=== PATIENT | female | born 1965 | race Caucasian/White ===

== ENCOUNTER 2020-05-01 07:37 | Inpatient (IN) | payer BC ==
[~2020-05-01 07:37] MED LIST: Povidone-Iodine 10% Soln 118.25 ML Bottle ONE; ceFAZolin 2 GM in Premix Bag 1 BAG IV ONE
[2020-05-01] MEDS: Nozin Nasal Sanitizer NASBOTH SCH ×3 (07:54→21:21)
[2020-05-01] MEDS ORDERED: Lactated Ringers 1,000 ML IV SCH (08:00)
[2020-05-01] MEDS ORDERED: Tranexamic Acid 1,000 MG in Sodium Chloride 0.9% 50 ML IV SCH (08:00)
[2020-05-01] MEDS ORDERED: Propofol 200 MG/20 ML SDV ONE ×2 (08:04→10:56)
[2020-05-01] MEDS ORDERED: Midazolam 1 MG/ML 2 ML SDV ONE ×2 (08:04→10:46)
[2020-05-01] MEDS ORDERED: fentaNYL 100 MCG/2 ML SDV ONE (08:04)
[2020-05-01] MEDS ORDERED: ceFAZolin 2 GM in Sodium Chloride 0.9% 100 ML IV ONE (08:30)
[2020-05-01] MEDS ORDERED: Lactated Ringers 1,000 ML ONE (10:37)
[2020-05-01] MEDS ORDERED: Magnesium Hydroxide 400 MG/5 ML Susp 30 ML Cup PO PRN (11:44)
[2020-05-01] MEDS ORDERED: Ondansetron 4 MG Tab.DIS PO PRN (11:44)
[2020-05-01] MEDS ORDERED: Acetaminophen/HYDROcodone 325-5 MG Tab PO PRN (11:44)
[2020-05-01] MEDS ORDERED: Morphine 2 MG/ML SYRINGE IVPUSH PRN (11:44)
[2020-05-01] MEDS ORDERED: ceFAZolin 1 GM in Sodium Chloride 0.9% 50 ML IV SCH (11:45)
[2020-05-01] MEDS ORDERED: ePHEDrine 50 MG/ML SDV ONE (12:02)
[2020-05-01] MEDS ORDERED: Sodium Chloride 0.9% 10 ML ONE (12:02)
[2020-05-01] MEDS: Acetaminophen/oxyCODONE 325-5 MG Tab PO PRN ×3 (13:00→21:18)
--- NOTE | 2020-05-01 13:31 | CR ---
Pelvis 1V or 2V CLINICAL HISTORY: Postop FINDINGS: Patient is status post total right hip arthroplasty. Components appear well seated. There are some osteoarthritic changes in the left hip with joint space narrowing. IMPRESSION: Status post total right hip arthroplasty
[2020-05-01] MEDS: Ketorolac 30 MG/ML SDV IVPUSH SCH ×2 (13:51→22:15)
[2020-05-01] MEDS: Sodium Chloride 0.9% 1,000 ML IV SCH ×2 (15:08→23:51)
[2020-05-01] MEDS: ceFAZolin 1 GM in Premix Bag 1 BAG IV SCH (17:13)
[2020-05-02] MEDS: ceFAZolin 1 GM in Premix Bag 1 BAG IV SCH ×2 (01:52→10:01)
[2020-05-02] MEDS: Acetaminophen/oxyCODONE 325-5 MG Tab PO PRN ×3 (03:37→12:35)
[2020-05-02] MEDS: Ketorolac 30 MG/ML SDV IVPUSH SCH ×3 (05:53→22:10)
[2020-05-02] MEDS: Enoxaparin 30 MG/0.3 ML Syringe SUBCUT SCH (08:58)
[2020-05-02] MEDS: Nozin Nasal Sanitizer NASBOTH SCH (08:58)
[2020-05-02] MEDS: Docusate Sodium 100 MG Cap PO SCH (08:58)
[2020-05-02] MEDS: Acetaminophen 325 MG Tab PO PRN (19:37)
[2020-05-03] MEDS: Nozin Nasal Sanitizer NASBOTH SCH ×2 (02:10→09:02)
[2020-05-03] MEDS: Acetaminophen 325 MG Tab PO PRN (02:14)
[2020-05-03] MEDS: Acetaminophen/HYDROcodone 325-5 MG Tab PO PRN ×2 (02:14→07:34)
[2020-05-03] MEDS: Ketorolac 30 MG/ML SDV IVPUSH SCH (05:15)
[2020-05-03] MEDS: Docusate Sodium 100 MG Cap PO SCH (09:02)
[2020-05-03] MEDS: Enoxaparin 30 MG/0.3 ML Syringe SUBCUT SCH (09:02)
[2020-05-03 11:43] VITALS: BP 132/73; PULSE 84
[2020-05-03] MEDS ORDERED: Acetaminophen/HYDROcodone 325-5 MG Tab PO PRN (12:32)
--- NOTE | 2020-05-04 16:36 | PCM.SURGPN ---
- General Info Date of Service: 05/02/20 Date of Surgery/Procedure: 05/01/20 POD#: 1 Post-Op Diagnosis: Osteoarthritis right hip Functional Status: Reports: Pain Controlled, Tolerating Diet, Ambulating, Urinating - Review of Systems General: Reports: No Symptoms HEENT: Reports: No Symptoms Pulmonary: Reports: No Symptoms Cardiovascular: Reports: No Symptoms Gastrointestinal: Reports: No Symptoms Genitourinary: Reports: No Symptoms Musculoskeletal: Reports: Joint Pain Skin: Reports: No Symptoms Neurological: Reports: No Symptoms Psychiatric: Reports: No Symptoms - Patient Data Vitals - Most Recent: Last Vital Signs Temp 36.7 C 05/03/20 11:22 Pulse 84 05/03/20 11:22 Resp 16 05/03/20 11:22 BP 132/73 05/03/20 11:22 Pulse Ox 99 05/03/20 11:22 Weight - Most Recent: 108.545 kg Med Orders - Current: Current Medications Discontinued Medications Acetaminophen (Tylenol) 650 mg PO Q4H PRN PRN Reason: Pain/Fever Last Admin: 05/03/20 02:14 Dose: 650 mg Documented by: Hydrocodone Bitart/Acetaminophen ([place] 325-5 Mg) 2 tab PO Q4H PRN PRN Reason: Pain (mild 1-3) Last Admin: 05/02/20 19:36 Dose: 1 tab Documented by: Hydrocodone Bitart/Acetaminophen ([place] 325-5 Mg) 1 - 2 tab PO Q4H PRN PRN Reason: Pain Last Admin: 05/03/20 07:34 Dose: 1 tab Documented by: Hydrocodone Bitart/Acetaminophen ([place] 325-5 Mg) 1 - 2 tab PO Q4H PRN PRN Reason: Pain Last Admin: 05/03/20 12:39 Dose: 1 tab Documented by: Bandage/Support Products ( Nasal Back Tufter) 1 applic NASBOTH BID [facility] Last Admin: 05/01/20 13:45 Dose: Not Given Documented by: Bandage/Support Products ( Nasal Back Tufter) 1 applic NASBOTH BID [facility] Stop: 05/08/20 21:01 Last Admin: 05/03/20 09:02 Dose: 1 applic Documented by: Docusate Sodium (Colace) 100 mg PO DAILY [facility] Last Admin: 05/03/20 09:02 Dose: 100 mg Documented by: Enoxaparin Sodium (Lovenox) 30 mg SUBCUT DAILY [facility] Last Admin: 05/03/20 09:02 Dose: 30 mg Documented by: Ephedrine Sulfate (Ephedrine Sulfate) Confirm Administered Dose 50 mg .ROUTE .[facility] ONE Stop: 05/01/20 12:03 Fentanyl (Sublimaze) Confirm Administered Dose 100 mcg .ROUTE .[facility] ONE Stop: 05/01/20 08:05 Lactated Ringer's (Ringers, Lactated) 1,000 mls @ 75 mls/hr IV ASDIRECTED [facility] Last Admin: 05/01/20 07:54 Dose: 75 mls/hr Documented by: Cefazolin Sodium/Dextrose 2 gm (/ Premix) 50 mls @ 100 mls/hr IV ONETIME ONE Stop: 05/01/20 07:59 Last Admin: 05/01/20 10:10 Dose: 100 mls/hr Documented by: Tranexamic Acid 1,000 mg/ (Sodium Chloride) 60 mls @ 240 mls/hr IV Q4H [facility] Stop: 05/01/20 12:14 Last Admin: 05/01/20 10:30 Dose: 240 mls/hr Documented by: Lactated Ringer's (Ringers, Lactated) Confirm Administered Dose 1,000 mls @ as directed .ROUTE .[facility] ONE Stop: 05/01/20 10:38 Sodium Chloride (Normal Saline) 1,000 mls @ 125 mls/hr IV ASDIRECTED [facility] Last Admin: 05/01/20 23:51 Dose: 125 mls/hr Documented by: Sodium Chloride (Normal Saline) Confirm Administered Dose 10 mls @ as directed .ROUTE .[facility] ONE Stop: 05/01/20 12:03 Cefazolin Sodium/Dextrose 1 gm (/ Premix) 50 mls @ 100 mls/hr IV Q8H [facility] Stop: 05/02/20 10:29 Last Admin: 05/02/20 10:01 Dose: 100 mls/hr Documented by: Ketorolac Tromethamine (Toradol) 30 mg IVPUSH Q8H [facility] Stop: 05/06/20 14:01 Last Admin: 05/03/20 05:15 Dose: Not Given Documented by: Magnesium Hydroxide (Milk Of Magnesia) 30 ml PO Q6H PRN PRN Reason: Stool Softener Last Admin: 05/02/20 19:41 Dose: 30 ml Documented by: Midazolam HCl (Versed 1 Mg/Ml) Confirm Administered Dose 2 mg .ROUTE .[facility] ONE Stop: 05/01/20 08:05 Midazolam HCl (Versed 1 Mg/Ml) Confirm Administered Dose 2 mg .ROUTE .[facility] ONE Stop: 05/01/20 10:47 Morphine Sulfate (Morphine) 1 mg IVPUSH Q1H PRN PRN Reason: Breakthrough Pain Ondansetron HCl (Zofran Odt) 4 mg PO Q6H PRN PRN Reason: Nausea/Vomiting Last Admin: 05/02/20 13:02 Dose: 4 mg Documented by: Oxycodone/Acetaminophen (Percocet 325-5 Mg) 0 tab PO Q4H PRN PRN Reason: Pain (severe 7-10) Last Admin: 05/02/20 12:35 Dose: 1 tab Documented by: Povidone Iodine (Betadine 10% Soln) Confirm Administered Dose 1 ml .ROUTE .[facility]- [facility] ONE Stop: 05/01/20 06:39 Last Admin: 05/01/20 10:55 Dose: 40 ml Documented by: Propofol (Diprivan 20 Ml) Confirm Administered Dose 200 mg .ROUTE .[facility] ONE Stop: 05/01/20 08:05 Propofol (Diprivan 20 Ml) Confirm Administered Dose 200 mg .ROUTE .[facility] ONE Stop: 05/01/20 10:57 - Exam Wound/Incisions: Dressing Dry and Intact General: Alert, Oriented HEENT: Pupils Equal Neck: Supple Lungs: Clear to Auscultation, Normal Respiratory Effort Cardiovascular: Regular Rate, Regular Rhythm GI/Abdominal Exam: Normal Bowel Sounds, Soft, Non-Tender, No Distention Extremities: Leg Pain, Limited Range of Motion Skin: Warm, Dry Neurological: No New Focal Deficit Psy/Mental Status: Alert, Normal Affect, Normal Mood Sepsis Event Note - Evaluation Sepsis Screening Result: No Definite Risk - Problem List & Annotations (1) Acute postoperative anemia due to expected blood loss SNOMED Code(s): 35606365102021453 Code(s): D62 - ACUTE POSTHEMORRHAGIC ANEMIA Status: Acute (2) Status post total hip replacement, right SNOMED Code(s): 258062413648, 150305836102 Code(s): Z96.641 - PRESENCE OF RIGHT ARTIFICIAL HIP JOINT Status: Acute (3) Osteoarthritis of right hip SNOMED Code(s): 819370591504873 Code(s): M16.11 - UNILATERAL PRIMARY OSTEOARTHRITIS, RIGHT HIP Status: Chronic Qualifiers: Osteoarthritis type: primary Qualified Code(s): M16.11 - Unilateral primary osteoarthritis, right hip - Problem List Review Problem List Initiated/Reviewed/Updated: Yes - Assessment Assessment (Free Text/Narrative):: Did very well overnight. Has been up in [place] with walker. Pain controlled on po meds. - Plan Plan (Free Text/Narrative):: Saline lock, IV, Pate out, continue PT, work on transitions and stairs, likely home after PT in AM.
--- NOTE | 2020-05-04 16:40 | PCM.DCSUM1 ---
Discharge Summary - Hospital Course Brief History: 54 year old with history of chronic right hip pain that has gotten progressively worse. Limited ROM and severe OA on x-ray. Admitted for right YANELIS. Diagnosis: Stroke: No Modified Glencoe Scale: No Symptoms at All Modified [place]coe Scale Score: 0 - Discharge Data Discharge Date: 05/03/20 Discharge Disposition: Home, Self-Care 01 Condition: Good - Referral to Home Health Date of Face to Face Encounter: 05/03/20 Primary Care Physician: DEEDEE Husain - Discharge Diagnosis/Problem(s) (1) Acute postoperative anemia due to expected blood loss SNOMED Code(s): 29638335444465896 ICD Code: D62 - ACUTE POSTHEMORRHAGIC ANEMIA Status: Acute (2) Status post total hip replacement, right SNOMED Code(s): 876987530937, 030008396194 ICD Code: Z96.641 - PRESENCE OF RIGHT ARTIFICIAL HIP JOINT Status: Acute (3) Osteoarthritis of right hip SNOMED Code(s): 702926477242222 ICD Code: M16.11 - UNILATERAL PRIMARY OSTEOARTHRITIS, RIGHT HIP Status: C hronic Qualifiers: Osteoarthritis type: primary Qualified Code(s): M16.11 - Unilateral primary osteoarthritis, right hip - Patient Summary/Data Operative Procedure(s) Performed: Right Total Hip Complications: None Consults: Consultations 05/01/20 11:44 Consult to Case Management/Tax Compliance Agent [CONS] Routine Comment: Physician Instructions: Discharge placement post hip surgery Service(s) to be Consulted: Case Management PT Evaluation and Treatment [CONS] Routine Please Evaluate and Treat. PT Reason for Consult: Ambulation Discharge Disposition: Home w Home Health Special Instructions: posterior hip precautions, WBAT This query below is only for informational purposes and is not editable. PT Evaluation and Treatment [CONS] Routine Please Evaluate and Treat. PT Reason for Consult: Post op Ortho Surgery Hip Pending Discharge: Yes, 2- -3 days Special Instructions: Schedule first outpatient P.T. appointment 3 - 5 days post discharge This query below is only for informational purposes and is not editable. 05/01/20 11:48 OT Evaluation and Treatment [CONS] Routine Please Evaluate and Treat. OT Reason for Consult: ADL's Special Instructions: Status post Hip Surgery This query below is only for informational purposes and is not editable. Hospital Course: Tolerated procedure very well. Pain well controlled with po meds prior to discharge. Walking in halls and transitioning out of bed. Dressing changed POD #2, incision looks good. Home with outpatient PT. - Patient Instructions Diet: Usual Diet as Tolerated Activity: Apply Ice, As Tolerated, Full Weight Bearing Driving: Do Not Drive Showering/Bathing: May Shower Wound/Incision Care: Keep Operative Site/Wound Site Clean and Dry Notify Provider of: Fever, Increased Pain, Swelling and Redness, Drainage Other/Special Instructions: Apsirin one twice a day - Discharge Plan *PRESCRIPTION DRUG MONITORING PROGRAM REVIEWED*: No *COPY OF PRESCRIPTION DRUG MONITORING REPORT IN PATIENT MARGA: No Prescriptions/Med Rec: Hydrocodone/Acetaminophen [[place] 5-325 Tablet] 1 - 2 each PO Q6HR PRN #40 tablet PRN Reason: Pain oxyCODONE HCl/Acetaminophen [Percocet 5-325 mg Tablet] 1 - 2 each PO Q6HR PRN #40 tablet PRN Reason: Pain Home Medications: Home Meds Ibuprofen 1 - 2 tab PO Q6HR PRN 04/06/20 [History] Hydrocodone/Acetaminophen [[place] 5-325 Tablet] 1 - 2 each PO Q6HR PRN #40 tablet 05/03/20 [Rx] oxyCODONE HCl/Acetaminophen [Percocet 5-325 mg Tablet] 1 - 2 each PO Q6HR PRN #40 tablet 05/03/20 [Rx] Other Amb Orders: PT Evaluation and Treatment [CONS] Location: None Selected Oxygen Therapy Mode: Room Air Referrals: Riky Hurtado PT [Physical Therapist] - 05/09/20 8:00 am (PLEASE ARRIVE 30 MINUTES EARLY TO REGISTER FOR YOUR PHYSICAL THERAPY APPOINTMENT. PLEASE USE THE ER ENTRANCE AND REGISTER AT THE ER DESK.) Fran Callejas MD [Physician] - 05/16/20 10:30 am (Please use the ER entrance and register at the ER desk.) - Discharge Summary/Plan Comment DC Time >30 min.: No - General Info Functional Status: Reports: Pain Controlled, Tolerating Diet, Ambulating, Urinating - Review of Systems General: Reports: No Symptoms HEENT: Reports: No Symptoms Pulmonary: Reports: No Symptoms Cardiovascular: Reports: No Symptoms Gastrointestinal: Reports: No Symptoms Genitourinary: Reports: No Symptoms Musculoskeletal: Reports: Joint Pain Skin: Reports: No Symptoms Neurological: Reports: No Symptoms Psychiatric: Reports: No Symptoms - Patient Data Vitals - Most Recent: Last Vital Signs Temp 36.7 C 05/03/20 11:22 Pulse 84 05/03/20 11:22 Resp 16 05/03/20 11:22 BP 132/73 05/03/20 11:22 Pulse Ox 99 05/03/20 11:22 Weight - Most Recent: 108.545 kg Med Orders - Current: Current Medications Discontinued Medications Acetaminophen (Tylenol) 650 mg PO Q4H PRN PRN Reason: Pain/Fever Last Admin: 05/03/20 02:14 Dose: 650 mg Documented by: Hydrocodone Bitart/Acetaminophen ([place] 325-5 Mg) 2 tab PO Q4H PRN PRN Reason: Pain (mild 1-3) Last Admin: 05/02/20 19:36 Dose: 1 tab Documented by: Hydrocodone Bitart/Acetaminophen ([place] 325-5 Mg) 1 - 2 tab PO Q4H PRN PRN Reason: Pain Last Admin: 05/03/20 07:34 Dose: 1 tab Documented by: Hydrocodone Bitart/Acetaminophen ([place] 325-5 Mg) 1 - 2 tab PO Q4H PRN PRN Reason: Pain Last Admin: 05/03/20 12:39 Dose: 1 tab Documented by: Bandage/Support Products ( Nasal Creative Services Coordinator) 1 applic NASBOTH BID [facility] Last Admin: 05/01/20 13:45 Dose: Not Given Documented by: Bandage/Support Products ( Nasal Creative Services Coordinator) 1 applic NASBOTH BID [facility] Stop: 05/08/20 21:01 Last Admin: 05/03/20 09:02 Dose: 1 applic Documented by: Docusate Sodium (Colace) 100 mg PO DAILY [facility] Last Admin: 05/03/20 09:02 Dose: 100 mg Documented by: Enoxaparin Sodium (Lovenox) 30 mg SUBCUT DAILY [facility] Last Admin: 05/03/20 09:02 Dose: 30 mg Documented by: Ephedrine Sulfate (Ephedrine Sulfate) Confirm Administered Dose 50 mg .ROUTE .STK-[facility] ONE Stop: 05/01/20 12:03 Fentanyl (Sublimaze) Confirm Administered Dose 100 mcg .ROUTE .[facility] ONE Stop: 05/01/20 08:05 Lactated Ringer's (Ringers, Lactated) 1,000 mls @ 75 mls/hr IV ASDIRECTED [facility] Last Admin: 05/01/20 07:54 Dose: 75 mls/hr Documented by: Cefazolin Sodium/Dextrose 2 gm (/ Premix) 50 mls @ 100 mls/hr IV ONETIME ONE Stop: 05/01/20 07:59 Last Admin: 05/01/20 10:10 Dose: 100 mls/hr Documented by: Tranexamic Acid 1,000 mg/ (Sodium Chloride) 60 mls @ 240 mls/hr IV Q4H [facility] Stop: 05/01/20 12:14 Last Admin: 05/01/20 10:30 Dose: 240 mls/hr Documented by: Lactated Ringer's (Ringers, Lactated) Confirm Administered Dose 1,000 mls @ as directed .ROUTE .[facility] ONE Stop: 05/01/20 10:38 Sodium Chloride (Normal Saline) 1,000 mls @ 125 mls/hr IV ASDIRECTED [facility] Last Admin: 05/01/20 23:51 Dose: 125 mls/hr Documented by: Sodium Chloride (Normal Saline) Confirm Administered Dose 10 mls @ as directed .ROUTE .[facility] ONE Stop: 05/01/20 12:03 Cefazolin Sodium/Dextrose 1 gm (/ Premix) 50 mls @ 100 mls/hr IV Q8H [facility] Stop: 05/02/20 10:29 Last Admin: 05/02/20 10:01 Dose: 100 mls/hr Documented by: Ketorolac Tromethamine (Toradol) 30 mg IVPUSH Q8H [facility] Stop: 05/06/20 14:01 Last Admin: 05/03/20 05:15 Dose: Not Given Documented by: Magnesium Hydroxide (Milk Of Magnesia) 30 ml PO Q6H PRN PRN Reason: Stool Softener Last Admin: 05/02/20 19:41 Dose: 30 ml Documented by: Midazolam HCl (Versed 1 Mg/Ml) Confirm Administered Dose 2 mg .ROUTE .[facility] Stop: 05/01/20 08:05 Midazolam HCl (Versed 1 Mg/Ml) Confirm Administered Dose 2 mg .ROUTE .STK-MED ONE Stop: 05/01/20 10:47 Morphine Sulfate (Morphine) 1 mg IVPUSH Q1H PRN PRN Reason: Breakthrough Pain Ondansetron HCl (Zofran Odt) 4 mg PO Q6H PRN PRN Reason: Nausea/Vomiting Last Admin: 05/02/20 13:02 Dose: 4 mg Documented by: Oxycodone/Acetaminophen (Percocet 325-5 Mg) 0 tab PO Q4H PRN PRN Reason: Pain (severe 7-10) Last Admin: 05/02/20 12:35 Dose: 1 tab Documented by: Povidone Iodine (Betadine 10% Soln) Confirm Administered Dose 1 ml .ROUTE .STK- MED ONE Stop: 05/01/20 06:39 Last Admin: 05/01/20 10:55 Dose: 40 ml Documented by: Propofol (Diprivan 20 Ml) Confirm Administered Dose 200 mg .ROUTE .STK-MED ONE Stop: 05/01/20 08:05 Propofol (Diprivan 20 Ml) Confirm Administered Dose 200 mg .ROUTE .STK-MED ONE Stop: 05/01/20 10:57 - Exam General: Reports: Alert, Oriented HEENT: Reports: Pupils Equal, Pupils Reactive, EOMI, Mucous Membr. Moist/[place] Neck: Reports: Supple Lungs: Reports: Clear to Auscultation, Normal Respiratory Effort Cardiovascular: Reports: Regular Rate, Regular Rhythm GI/Abdominal Exam: Normal Bowel Sounds, Soft, Non-Tender, No Organomegaly, No Distention, No Abnormal Bruit, No Mass, Pelvis Stable (Female) Exam: Deferred Rectal (Female) Exam: Deferred Back Exam: Reports: Normal Inspection Extremities: Leg Pain, Limited Range of Motion Skin: Reports: Warm, Dry Wound/Incisions: Reports: Healing Well, No Drainage Neurological: Reports: No New Focal Deficit Psy/Mental Status: Reports: Alert, Normal Affect, Normal Mood
--- NOTE | 2020-05-10 17:09 | OR ---
DATE OF PROCEDURE: 05/01/2020 SURGEON: Fran Callejas MD PREOPERATIVE DIAGNOSIS: Osteoarthritis, right hip. POSTOPERATIVE DIAGNOSIS: Osteoarthritis, right hip. PROCEDURE: Right total hip arthroplasty using Mauri M/L taper stem size 7.5, standard 54 mm Continuum cup with elevated liner, and a 36 mm -3.5 neck length ceramic head. ANESTHESIA: Spinal with sedation. INDICATIONS: Mallorie is a very pleasant 54-year-old female with a history of progressive pain in the left hip for the past couple of years. It has gotten significantly worse in the last several months. This limited her activities of daily living. X-rays reveal end-stage osteoarthritis. Now presents for right total hip arthroplasty. Risks, benefits, and potential complications of the procedure were discussed. DESCRIPTION OF PROCEDURE: After adequate anesthesia was obtained, the patient was placed in a lateral decubitus position and secured with the hip positioner. The right hip and leg were then prepped and draped in a sterile fashion. A longitudinal incision was made over the greater trochanter, carried down through the subcutaneous tissues, and hemostasis obtained with electrocautery. Tensor fascia was split in line with its fibers, and a Charnley retractor was placed. Short external rotators were taken off the greater trochanter along with the posterior capsule in 1 layer. Capsule was then divided in a T- fashion, and the hip was dislocated. Retractor was placed about the femoral neck, and a femoral neck cut was made with an oscillating saw. Retractors were placed about the anterior and inferior aspect of the acetabulum. Remaining degenerative labrum was excised. Soft tissues were cleared from the central acetabulum, which was then reamed to 54 mm. The 54 mm Continuum cup was press-fit into position, and additional fixation obtained with acetabular screw. This was irrigated, and an elevated liner was tapped into position. Attention was turned to the femur where a box osteotome was used to remove the lateral femoral neck cortex. An awl was placed down the canal followed by a lateralizing reamer. The canal was then sequentially broached to a 7.5 size. This was then left in place, and trial reductions were made with a -3.5 neck length restoring limb length. Trials were removed. A M/L taper stem was tapped into position, and a trial reduction was again done with a -3.5 neck length, which provided full extension and excellent stability in flexion, adduction, and internal rotation. Trials were removed. Trunnion of the stem was dried, and a 36 mm ceramic head with a -3.5 neck length was tapped into position. This was reduced and taken through range of motion, which again was very stable. The hip was irrigated including irrigation with dilute Betadine solution. The capsule was repaired with #2 Ethibond, and short external rotators reattached to the greater trochanter. Tensor fascia and IT band were then repaired in a running locking fashion, and skin was closed with 2-0 Vicryl and a running 3-0 Monocryl. Skin was covered with Steri-Strips and a sterile dressing. The patient tolerated the procedure very well. There were no complications, taken from the operative room in stable condition. Fran Callejas MD /[id number]
== END 2020-05-03 13:40 | disposition home or self-care (01) | DRG 301 ==
LOC: JP.SDS 07:37 → JP.MS 11:44 → JP.SDS 11:45 → JP.MS 11:45
PROVIDERS: ADMIT Specialist; ATTEND Specialist
PROC: 0SR903A Replacement of Right Hip Joint with Ceramic Synthetic Substitute, Uncemented, Open Approach (ICD-10-PCS; principal; 2020-05-01)
DX: M16.11 Unilateral primary osteoarthritis, right hip (principal); D62 Acute posthemorrhagic anemia; Z90.49 Acquired absence of other specified parts of digestive tract; Z88.0 Allergy status to penicillin; Z88.8 Allergy status to other drugs, medicaments and biological substances
CPT/HCPCS: 36415; 72170; 72170-26; 86850; 86900; 86901; 97110-GP; 97116-GP; 97161-GP; 97530-GP; 97535-GP; A9270-GY; C1713; C1776; J0690; J1650; J1885; J2250; J2704; J3010; J7030; J7050; J7120

== ENCOUNTER 2022-04-05 08:49 | Day surgery (SDC) | payer OTHER ==
[2022-04-05] MEDS ORDERED: Lactated Ringers 1,000 ML IV SCH (09:15)
[2022-04-05] MEDS ORDERED: Propofol 200 MG/20 ML SDV ONE (10:23)
[2022-04-05] MEDS ORDERED: fentaNYL 100 MCG/2 ML SDV ONE (10:23)
[2022-04-05] MEDS ORDERED: Midazolam 1 MG/ML 2 ML SDV ONE (10:23)
[2022-04-05 12:55] VITALS: BP 113/74; PULSE 66
== END 2022-04-05 12:56 | disposition home or self-care (01) ==
LOC: JP.SDS 08:49
PROVIDERS: ATTEND Family Medicine
DX: K92.1 Melena (principal); K64.8 Other hemorrhoids; K64.4 Residual hemorrhoidal skin tags; J45.909 Unspecified asthma, uncomplicated; M16.10 Unilateral primary osteoarthritis, unspecified hip; F32.A Depression, unspecified; Z88.0 Allergy status to penicillin; Z88.8 Allergy status to other drugs, medicaments and biological substances; Z90.49 Acquired absence of other specified parts of digestive tract; Z90.710 Acquired absence of both cervix and uterus
CPT/HCPCS: 45378; J2250; J2704; J3010; J7120

== ENCOUNTER 2023-01-25 22:31 | Emergency (ER) | payer OTHER ==
[2023-01-26 00:53] LABS: BASOPHILS PERCENT AUTO 0.1 % (0.1-1.3); EOSINOPHILS PERCENT AUTO 0.2 % (0.0-5.4); HEMATOCRIT 40.6 % (34.3-46.0); HEMOGLOBIN 13.1 g/dL (11.2-15.5); IMMATURE GRAN ABSOLUTE AUTO 0.04 K/uL (0.00-0.23); IMMATURE GRAN PERCENT AUTO 0.4 % (0.0-0.7); LYMPHOCYTES ABSOLUTE AUTO 0.76 K/uL (0.8-3.3); LYMPHOCYTES PERCENT AUTO 7.8 % (11.4-47.7); MEAN CORPUSCULAR HEMOGLOBIN 28.1 pg (31.6-35.5); MEAN CORPUSCULAR HGB CONC 32.3 g/dL (31.6-35.5); MEAN CORPUSCULAR VOLUME 86.9 fL (81.4-99.0); MONOCYTES ABSOLUTE AUTO 0.76 K/uL (0.20-0.90); MONOCYTES PERCENT AUTO 7.8 % (3.3-12.6); NEUTROPHILS PERCENT AUTO 83.7 % (40.0-78.1); PLATELET COUNT,PLT 180 K/uL (130-375); RED BLOOD CELL COUNT 4.67 M/uL (3.77-5.24); WHITE BLOOD CELL COUNT,WBC 9.8 K/uL (3.2-11.0)
[2023-01-26 01:11] LABS: BASOPHILS ABSOLUTE AUTO 0.01 K/uL (0.00-0.10); EOSINOPHILS ABSOLUTE AUTO 0.02 K/uL (0.00-0.40)
[2023-01-26 01:13] LABS: A/G RATIO 0.7 (1.2-2.2); ALANINE AMINOTRANSFERASE,ALT 66 U/L (12-78); ALKALINE PHOSPHATASE 141 U/L (46-116); ASPARTATE AMNIOTRANSFERASE,AST 73 U/L (15-37); BILIRUBIN TOTAL 0.6 mg/dL (0.2-1.0); BLOOD UREA NITROGEN,BUN 11 mg/dL (7-18); CALCIUM 8.6 mg/dL (8.5-10.1); CARBON DIOXIDE,CO2 28 mmol/L (21-32); CHLORIDE,CL 101 mmol/L (100-108); CREATININE 0.8 mg/dL (0.6-1.0); EST CRCL DRUG DOSING (CG) 84.91 mL/min; ESTIMATED GFR 86 mL/min (>60); GLUCOSE RANDOM 135 mg/dL (74-106); POTASSIUM,K 3.1 mmol/L (3.6-5.2); PROTEIN TOTAL,TP 7.3 g/dL (6.4-8.2); SODIUM,NA 135 mmol/L (140-148)
[2023-01-26 01:24] LABS: ANION GAP 9.1 mmol/L (5.0-14.0)
[2023-01-26 02:41] VITALS: BP 137/68; PULSE 101
== END 2023-01-26 02:50 | disposition home or self-care (01) ==
LOC: JP.ED 22:31
DX: L03.116 Cellulitis of left lower limb (principal); J45.909 Unspecified asthma, uncomplicated; Z88.0 Allergy status to penicillin; Z88.8 Allergy status to other drugs, medicaments and biological substances
CPT/HCPCS: 36415; 80053; 83605; 84145; 85025; 99283

== ENCOUNTER 2023-01-27 13:58 | Inpatient (IN) | payer OTHER ==
[2023-01-27] MEDS ORDERED: Sodium Chloride 0.9% 10 ML Syringe FLUSH PRN (15:57)
[2023-01-27 16:22] LABS: BASOPHILS PERCENT AUTO 0.2 % (0.1-1.3); EOSINOPHILS ABSOLUTE AUTO 0.05 K/uL (0.00-0.40); EOSINOPHILS PERCENT AUTO 0.5 % (0.0-5.4); HEMATOCRIT 38.6 % (34.3-46.0); IMMATURE GRAN ABSOLUTE AUTO 0.05 K/uL (0.00-0.23); IMMATURE GRAN PERCENT AUTO 0.5 % (0.0-0.7); LYMPHOCYTES ABSOLUTE AUTO 0.69 K/uL (0.8-3.3); LYMPHOCYTES PERCENT AUTO 6.9 % (11.4-47.7); MEAN CORPUSCULAR HEMOGLOBIN 28.3 pg (31.6-35.5); MEAN CORPUSCULAR HGB CONC 33.7 g/dL (31.6-35.5); MEAN CORPUSCULAR VOLUME 84.1 fL (81.4-99.0); MONOCYTES ABSOLUTE AUTO 0.88 K/uL (0.20-0.90); MONOCYTES PERCENT AUTO 8.8 % (3.3-12.6); NEUTROPHILS ABSOLUTE AUTO 8.31 K/uL (1.0-7.6); NEUTROPHILS PERCENT AUTO 83.1 % (40.0-78.1); PLATELET COUNT,PLT 217 K/uL (130-375); RED BLOOD CELL COUNT 4.59 M/uL (3.77-5.24)
[2023-01-27 16:23] LABS: BASOPHILS ABSOLUTE AUTO 0.02 K/uL (0.00-0.10)
[2023-01-27] MEDS ORDERED: HYDROmorphone 0.5 MG/0.5 ML Syringe IVPUSH ONE (16:40)
[2023-01-27 16:44] LABS: A/G RATIO 0.6 (1.2-2.2); ALANINE AMINOTRANSFERASE,ALT 68 U/L (12-78); ALBUMIN 2.9 g/dL (3.4-5.0); ALKALINE PHOSPHATASE 190 U/L (46-116); ASPARTATE AMNIOTRANSFERASE,AST 51 U/L (15-37); BILIRUBIN TOTAL 0.6 mg/dL (0.2-1.0); BLOOD UREA NITROGEN,BUN 10 mg/dL (7-18); CALCIUM 9.1 mg/dL (8.5-10.1); CARBON DIOXIDE,CO2 26 mmol/L (21-32); CHLORIDE,CL 100 mmol/L (100-108); CREATININE 0.8 mg/dL (0.6-1.0); ESTIMATED GFR 86 mL/min (>60); GLUCOSE RANDOM 118 mg/dL (74-106); POTASSIUM,K 3.1 mmol/L (3.6-5.2); PROTEIN TOTAL,TP 7.6 g/dL (6.4-8.2); SODIUM,NA 135 mmol/L (140-148)
[2023-01-27 16:45] LABS: ANION GAP 12.1 mmol/L (5.0-14.0)
[2023-01-27 16:48] LABS: LACTIC ACID 1.1 mmol/L (0.4-2.0)
[2023-01-27] MEDS ORDERED: Ibuprofen 400 MG Tab PO ONE (17:20)
[2023-01-27] MEDS ORDERED: Potassium Chloride 20 MEQ Tab.ER PO ONE (19:25)
[2023-01-27] MEDS ORDERED: Ondansetron 4 MG Tab.DIS PO PRN (19:25)
[2023-01-27] MEDS ORDERED: Ondansetron 4 MG/2 ML SDV IV PRN (19:25)
[2023-01-27] MEDS ORDERED: Magnesium Hydroxide 400 MG/5 ML Susp 30 ML Cup PO PRN (19:25)
[2023-01-27] MEDS ORDERED: Ibuprofen 600 MG Tab PO PRN (19:25)
[2023-01-27] MEDS ORDERED: Sodium Chloride 0.9% 1,000 ML IV SCH (19:25)
[2023-01-27] MEDS ORDERED: diphenhydrAMINE 50 MG/ML SDV IVPUSH ONE (19:46)
[2023-01-27] MEDS: Enoxaparin 40 MG/0.4 ML Syringe SUBCUT SCH (20:16)
[2023-01-27] MEDS: Triamcinolone Acetonide 0.1% Oint 15 GM Tube TOP SCH (20:16)
[2023-01-27] MEDS: Lactobacillus Rhamnosus GG (Probiotic) Cap PO SCH (20:16)
[2023-01-27] MEDS: Acetaminophen 325 MG Tab PO PRN (20:22)
[2023-01-27] MEDS ORDERED: Famotidine 20 MG/2 ML SDV IVPUSH PRN (23:43)
[2023-01-27] MEDS ORDERED: diphenhydrAMINE 50 MG/ML SDV IVPUSH PRN (23:43)
[2023-01-28] MEDS: Acetaminophen 325 MG Tab PO PRN ×4 (03:52→20:10)
[2023-01-28 05:10] LABS: HEMATOCRIT 34.3 % (34.3-46.0); HEMOGLOBIN 11.5 g/dL (11.2-15.5); MEAN CORPUSCULAR HGB CONC 33.5 g/dL (31.6-35.5); MEAN CORPUSCULAR VOLUME 83.5 fL (81.4-99.0); RED BLOOD CELL COUNT 4.11 M/uL (3.77-5.24); WHITE BLOOD CELL COUNT,WBC 8.7 K/uL (3.2-11.0)
[2023-01-28 05:30] LABS: CALCIUM 8.7 mg/dL (8.5-10.1); CREATININE 0.6 mg/dL (0.6-1.0); EST CRCL DRUG DOSING (CG) 90.41 mL/min; POTASSIUM,K 3.4 mmol/L (3.6-5.2)
[2023-01-28 05:31] LABS: ANION GAP 14.4 mmol/L (5.0-14.0)
[2023-01-28] MEDS ORDERED: Lidocaine 2% 30 ML, Alum Hydrox/Mag Hydrox/Simeth 30 ML, diphenhydrAMINE 75 MG PO PRN ×3 (09:11)
[2023-01-28] MEDS: Lactobacillus Rhamnosus GG (Probiotic) Cap PO SCH ×2 (09:21→22:00)
[2023-01-28] MEDS ORDERED: Potassium Chloride 20 MEQ Tab.ER PO ONE (09:30)
[2023-01-28] MEDS: Triamcinolone Acetonide 0.1% Oint 15 GM Tube TOP SCH ×2 (09:31→22:14)
[2023-01-28] MEDS: Enoxaparin 40 MG/0.4 ML Syringe SUBCUT SCH (20:03)
[2023-01-28] MEDS: traMADol 50 MG Tab PO PRN (21:59)
[2023-01-29] MEDS: traMADol 50 MG Tab PO PRN (04:31)
[2023-01-29] MEDS: Acetaminophen 325 MG Tab PO PRN (04:32)
[2023-01-29] MEDS: Lactobacillus Rhamnosus GG (Probiotic) Cap PO SCH (08:00)
[2023-01-29] MEDS: Triamcinolone Acetonide 0.1% Oint 15 GM Tube TOP SCH (08:46)
[2023-01-29] MEDS ORDERED: Doxycycline 100 MG Cap PO SCH (11:00)
[2023-01-29 11:34] VITALS: BP 126/76; PULSE 78
== END 2023-01-29 16:00 | disposition home or self-care (01) | DRG 603 ==
LOC: JP.ED 13:58 → JP.MS 17:36
PROVIDERS: ADMIT Internal Medicine; ATTEND Internal Medicine
DX: L03.116 Cellulitis of left lower limb (principal); E87.6 Hypokalemia; I87.2 Venous insufficiency (chronic) (peripheral); F41.9 Anxiety disorder, unspecified; F32.A Depression, unspecified; Z90.710 Acquired absence of both cervix and uterus; Z20.822 Contact with and (suspected) exposure to COVID-19; J45.909 Unspecified asthma, uncomplicated; Z90.89 Acquired absence of other organs; Z98.890 Other specified postprocedural states; Z90.49 Acquired absence of other specified parts of digestive tract; Z88.0 Allergy status to penicillin; Z88.8 Allergy status to other drugs, medicaments and biological substances
CPT/HCPCS: 36415; 80048; 80053; 83605; 84145; 85025; 85027; 86140; 87040; 93971-26-LT; 93971-LT; 96365; 99285-25; A9270-GY; J0713; J1200; J1650; J3370; J3490; J7030; J7050; U0002

== ENCOUNTER 2023-02-12 14:34 | Emergency (ER) | payer OTHER ==
[2023-02-12 15:46] LABS: BASOPHILS ABSOLUTE AUTO 0.03 K/uL (0.00-0.10); BASOPHILS PERCENT AUTO 0.6 % (0.1-1.3); EOSINOPHILS ABSOLUTE AUTO 0.34 K/uL (0.00-0.40); EOSINOPHILS PERCENT AUTO 6.8 % (0.0-5.4); HEMATOCRIT 36.2 % (34.3-46.0); HEMOGLOBIN 12.1 g/dL (11.2-15.5); IMMATURE GRAN PERCENT AUTO 0.2 % (0.0-0.7); LYMPHOCYTES ABSOLUTE AUTO 1.34 K/uL (0.8-3.3); LYMPHOCYTES PERCENT AUTO 26.7 % (11.4-47.7); MEAN CORPUSCULAR HEMOGLOBIN 28.8 pg (31.6-35.5); MEAN CORPUSCULAR HGB CONC 33.4 g/dL (31.6-35.5); MEAN CORPUSCULAR VOLUME 86.2 fL (81.4-99.0); MONOCYTES ABSOLUTE AUTO 0.58 K/uL (0.20-0.90); MONOCYTES PERCENT AUTO 11.6 % (3.3-12.6); NEUTROPHILS ABSOLUTE AUTO 2.72 K/uL (1.0-7.6); NEUTROPHILS PERCENT AUTO 54.1 % (40.0-78.1); PLATELET COUNT,PLT 296 K/uL (130-375)
[2023-02-12 15:47] LABS: IMMATURE GRAN ABSOLUTE AUTO 0.01 K/uL (0.00-0.23)
[2023-02-12 16:15] LABS: ANION GAP 7.5 mmol/L (5.0-14.0); C-REACTIVE PROTEIN 0.24 mg/dL (0.0-0.3); CREATININE 0.8 mg/dL (0.6-1.0); EST CRCL DRUG DOSING (CG) 84.91 mL/min; MAGNESIUM 2.4 mg/dL (1.8-2.4); POTASSIUM,K 4.2 mmol/L (3.6-5.2); TSH ULTRASENSITIVE 1.457 uIU/mL (0.358-3.740)
[2023-02-12 16:35] LABS: LYME AB IgG Negative (Negative)
[2023-02-12 16:40] LABS: LYME AB IgM Negative (Negative)
[2023-02-12 17:24] VITALS: BP 110/69; PULSE 74
== END 2023-02-12 18:05 | disposition home or self-care (01) ==
LOC: JP.ED 14:34
DX: M79.89 Other specified soft tissue disorders (principal); I87.8 Other specified disorders of veins; R53.83 Other fatigue; Z88.0 Allergy status to penicillin; Z88.8 Allergy status to other drugs, medicaments and biological substances
CPT/HCPCS: 36415; 80048; 83735; 84443; 85025; 85379; 86140; 86618; 93005; 93971-LT; 99284